=== PATIENT | female | born 1935 | race Caucasian/White ===

== ENCOUNTER 2019-01-05 16:44 | Emergency (ER) | payer OTHER ==
[~2019-01-05] VITALS: Ht 157.5 cm; Wt 72.7 kg
[2019-01-05 17:22] VITALS: Ht 157.5 cm; Wt 72.7 kg
[2019-01-05] MEDS ORDERED: CYMBALTA20 MG (17:25)
[2019-01-05] MEDS ORDERED: AMBIEN5 MG (17:25)
[2019-01-05] MEDS ORDERED: BAYER CHEWABLE81 MG (17:25)
[2019-01-05] MEDS ORDERED: OXYBUTYNIN5 MG/5 ML (17:25)
[2019-01-05] MEDS ORDERED: PRAVACHOL20 MG (17:26)
[2019-01-05] MEDS ORDERED: ELIQUIS2.5 MG (17:26)
[2019-01-05] MEDS ORDERED: LOPID600 MG (17:26)
[2019-01-05] MEDS ORDERED: HYDROCODON-ACET15 ML (17:26)
[2019-01-05] MEDS ORDERED: NORVASC2.5 MG (17:26)
[2019-01-05] MEDS ORDERED: COZAAR25 MG (17:26)
[2019-01-05] MEDS ORDERED: GABAPENTIN100 MG (17:26)
[2019-01-05 19:04] VITALS: BP 130/60
== END 2019-01-05 19:05 | disposition home or self-care (01) ==
LOC: D.ER 16:44
DX: M17.11 Unilateral primary osteoarthritis, right knee (principal); E11.9 Type 2 diabetes mellitus without complications; I10 Essential (primary) hypertension; Z96.641 Presence of right artificial hip joint